=== PATIENT | female | born 1970 | race Caucasian/White ===

== ENCOUNTER 2024-04-29 11:00 | Emergency (ER) | payer BC ==
[~2024-04-29] VITALS: Ht 157.5 cm; Wt 92.5 kg
[~2024-04-29 11:00] MED LIST: BUPR-120 PO; ESCI20TA PO; IMII6 SQ; OMEP20CA15 PO; SOM350 PO; TOPI50TA PO; TRAZ-250 PO; WELSR150 PO
[2024-04-29 11:21] VITALS: BP_SYST 132; PULSE 64; RESP 17; TEMP 99.1; O2SAT 96
[2024-04-29 11:52] VITALS: TEMP 99.6
[2024-04-29 11:56] LABS: BASOPHILS % (AUTO) 0.3 % (0.0-2.0); HEMATOCRIT 41.2 % (36-48); HEMOGLOBIN 13.8 g/dL (12.0-16.0); LYMPHOCYTES # (AUTO) 0.6 K/uL (1.0-5.5); LYMPHOCYTES % (AUTO) 3.9 % (20.5-51.5); MEAN CORPUSCULAR HEMOGLOBIN 30 pg (27-31); MEAN CORPUSCULAR HGB CONC 34 % (32-36); MEAN CORPUSCULAR VOLUME 88 fL (79.0-98.0); MONOCYTES # (AUTO) 0.7 K/uL (0.0-1.0); MONOCYTES % (AUTO) 4.5 % (1.7-9.3); NEUTROPHILS # (AUTO) 14.2 K/uL (1.8-7.7); NEUTROPHILS % (AUTO) 91.3 % (40.0-70.0); PLATELET COUNT (AUTO) 236 K/uL (130-430); RED BLOOD CELL COUNT(AUTO) 4.67 MIL/uL (4.2-6.2); RED CELL DISTRIBUTION WIDTH 13.8 % (9.0-15.0); WHITE BLOOD COUNT (AUTO) 15.6 K/uL (4.8-10.8)
[2024-04-29] MEDS: DICYCLOMINE HCL 20 MG/2 ML AMP IM ONE (12:08)
[2024-04-29] MEDS: KETOROLAC TROMETHAMINE 15 MG VIAL IVP ONE (12:08)
[2024-04-29 12:22] LABS: ALBUMIN 4.4 g/dL (3.4-4.8); BILIRUBIN,DIRECT 0.1 mg/dL (0.0-0.3); CALCIUM 8.9 mg/dL (8.4-11.0); CREATININE 0.77 mg/dL (0.55-1.30); POTASSIUM 3.5 mmol/L (3.5-5.1); TOTAL BILIRUBIN 0.6 mg/dL (0.0-1.0); TOTAL PROTEIN, SERUM 7.5 g/dL (6.4-8.3)
[2024-04-29] MEDS ORDERED: NAPR-690 PO (12:59)
[2024-04-29] MEDS ORDERED: BISM262T15 PO (12:59)
[2024-04-29] MEDS ORDERED: ONDA-8 TL (12:59)
[2024-04-29] MEDS ORDERED: DICY-14 PO (12:59)
[2024-04-29 13:35] VITALS: BP_SYST 112; PULSE 83; RESP 16; O2SAT 97
== END 2024-04-29 13:36 | disposition home or self-care (01) ==
LOC: SED 11:00
DX: A08.4 Viral intestinal infection, unspecified (principal); R10.9 Unspecified abdominal pain; R11.2 Nausea with vomiting, unspecified; D72.829 Elevated white blood cell count, unspecified; K21.9 Gastro-esophageal reflux disease without esophagitis; G43.909 Migraine, unspecified, not intractable, without status migrainosus; Z88.0 Allergy status to penicillin; Z79.899 Other long term (current) drug therapy; Z79.2 Long term (current) use of antibiotics
CPT/HCPCS: 99285; 74176; 96374; 96375; 80076; 80048; 83690; 85025; 36415; J0500; J1885